=== PATIENT | female | born 1940 | race Caucasian/White ===

== ENCOUNTER 2022-09-08 21:56 | Inpatient (IN) | payer MEDICARE ==
[~2022-09-08] VITALS: Ht 160 cm; Wt 46.3 kg
[2022-09-08] MEDS ORDERED: ASPIRIN 325 MG TABLET PO ONE (22:30)
[2022-09-08] MEDS ORDERED: ASPIRIN 325 MG TABLET ONE (22:41)
[2022-09-08] MEDS ORDERED: ASPIRIN 300 MG/SUPP.RECT RC ONE ×2 (22:45→23:00)
--- NOTE | 2022-09-08 22:45 | NUR ---
PT IN ROOM 7, A/O X3, BREATHING IS EVEN AND UNLABORED. C/O CHEST PAIN AND BILATERALL LOWER LEG PAIN 10/10 SLIGHT SWELLING NOTED. PT IS GREATLY FATUGED HAVING TOUBLE SWALLOWING. PT CONNECTED TO BEDISDE MONITOR. BED LOCKED IN LOWEST POSTION SIDE RAILS UP IN FOLWERS POSITION.
[2022-09-08 22:59] LABS: BASOPHILS # (AUTO) 0.1 K/uL (0.0-0.2); BASOPHILS % (AUTO) 1.1 % (0.0-2.0); EOSINOPHILS % (AUTO) 1.8 % (0.0-6.0); HEMATOCRIT 39 % (33-45); HEMOGLOBIN 12.8 g/dL (11.5-14.8); LYMPHOCYTES # (AUTO) 0.7 K/uL (0.8-4.8); LYMPHOCYTES % (AUTO) 14.5 % (20.0-44.0); MEAN CORPUSCULAR HGB CONC 33 g/dl (31.0-36.0); MEAN CORPUSCULAR VOLUME 94 fL (82-100); MONOCYTES # (AUTO) 0.8 K/uL (0.1-1.30); MONOCYTES % (AUTO) 15.5 % (2.0-12.0); NEUTROPHILS # (AUTO) 3.3 K/uL (1.8-8.9); NEUTROPHILS % (AUTO) 67.1 % (43.0-81.0); PLATELET COUNT (AUTO) 198 K/uL (150-450); RED BLOOD CELL COUNT(AUTO) 4.09 MIL/uL (4.0-5.2); WHITE BLOOD COUNT (AUTO) 4.9 K/uL (4.3-11.0)
--- NOTE | 2022-09-08 23:12 | NUR ---
APPLICATIONS ARCHITECT AT BEDSIDE FOR XRAY
[2022-09-08 23:23] LABS: ALANINE AMINOTRANSFERASE 24 U/L (12-78); ALBUMIN 3.2 g/dL (3.4-5.0); ALKALINE PHOSPHATASE 48 U/L (46-116); ASPARTATE AMINOTRANSFERASE 17 U/L (15-37); BILIRUBIN,DIRECT 0.2 mg/dL (0.0-0.2); BILIRUBIN,TOTAL 0.6 mg/dL (0.2-1.0); CARBON DIOXIDE 27 mmol/L (21-32); CHLORIDE 99 mmol/L (98-107); CREATININE 0.8 mg/dL (0.6-1.3); GLUCOSE 113 mg/dL (74-106); POTASSIUM 4.2 mmol/L (3.5-5.1); SODIUM SERUM 131 mmol/L (136-145); UREA NITROGEN, BLOOD 19 mg/dL (7-18)
--- NOTE | 2022-09-08 23:40 | NUR ---
Pebbles finney in [facility] - 09/09/22 at 0010 by WILLIEBBDARIAN pt transported to room 114on cardiac per acls in stable condition
--- NOTE | 2022-09-09 00:55 | NUR ---
[facility] PAGED
[2022-09-09 01:08] LABS: BASOPHILS % (MANUAL) 0 % (0.0-2.0); EOSINOPHILS % (MANUAL) 3 % (0-4); LYMPHOCYTES % (MANUAL) 13 % (16-48); MONOCYTES % (MANUAL) 14 % (0-11.0); NEUTROPHILS % (MANUAL) 70 (42-76)
[2022-09-09] MEDS ORDERED: ACETAMINOPHEN 325 MG TABLET PO PRN (02:00)
[2022-09-09] MEDS ORDERED: HYDROCODONE/APAP 5/325MG TABLET PO PRN (02:00)
[2022-09-09] MEDS ORDERED: Z GUARD REMEDY 4 OZ OINT TP PRN (02:00)
[2022-09-09] MEDS ORDERED: MAG HYDROX/AL HYDROX/SIMETH 30 ML UDC PO PRN (02:00)
[2022-09-09] MEDS ORDERED: ONDANSETRON HCL/PF 4 MG/2 ML VIAL IVP PRN (02:00)
[2022-09-09] MEDS ORDERED: ZOLPIDEM TARTRATE 5 MG TABLET PO PRN (02:00)
[2022-09-09] MEDS ORDERED: MAGNESIUM HYDROXIDE 30 ML UDC PO PRN (02:00)
--- NOTE | 2022-09-09 02:40 | NUR ---
COVID SWAB AND MRSA COLLECTED, SENT TO LAB
[2022-09-09] MEDS ORDERED: ACET325C7 PO (03:31)
[2022-09-09] MEDS ORDERED: DOXA8TAB2 PO (03:31)
[2022-09-09] MEDS ORDERED: CARV12.52 PO (03:31)
[2022-09-09] MEDS ORDERED: CALC500T13 PO (03:31)
[2022-09-09] MEDS ORDERED: HYDR-4075 PO (03:31)
[2022-09-09] MEDS ORDERED: CRAN250C PO (03:31)
[2022-09-09] MEDS ORDERED: MAGN400O21 PO (03:31)
[2022-09-09] MEDS ORDERED: MULT-754 PO (03:31)
[2022-09-09] MEDS ORDERED: DOCU100C36 PO (03:31)
[2022-09-09] MEDS ORDERED: SODI1TAB66 PO (03:31)
[2022-09-09] MEDS ORDERED: ACET-2605 PO ×2 (03:31→09:52)
[2022-09-09] MEDS ORDERED: HYDR-4076 PO (03:31)
[2022-09-09] MEDS ORDERED: ONDA4TAB5 PO (03:31)
[2022-09-09] MEDS ORDERED: VALS160T29 PO (03:31)
[2022-09-09] MEDS ORDERED: APIX5TAB PO (03:31)
--- NOTE | 2022-09-09 04:40 | NUR ---
REPORT GIVEN TO RITA BLOOM FOR SHANIQUE
[2022-09-09] MEDS ORDERED: ENOXAPARIN SODIUM 40 MG/0.4 ML DISP.SYRIN SQ SCH (05:00)
--- NOTE | 2022-09-09 05:08 | NUR ---
TRANSFERRED TO BED 325 IN STABLE CONDITION
--- NOTE | 2022-09-09 06:00 | NUR ---
FISH PITCHER ADMITTING NOTE PATIENT WAS TRANSFERRED FROM ER TO 325 2 AT 0505H; PATIENT IS A/O X 4, ABLE TO MAKE NEEDS KNOWN; STABLE ON 2LPM OXYGEN VIA NASAL CANNULA, BREATHING EVENLY AND NO S/S OF DISTRESS NOTED; WITH IV ACCESS AT RFA G#20 SALINE LOCK; ORIENTED TO STAFF AND ROOM; SKIN ASSESSMENT ADN VITAL SIGNS WERE DONE; PATIENT'S BELONGINGS ACCOUNTED FOR; HOOKED ON TELE MONITORING CURRENTLY READING SINUS RHYTHMS 70 BPMS; SAFETY MEASURES IMPLEMENTED, BED LOCKED IN LOWEST POSITION, SIDE RAILS UP X 3, CALL LIGHT AND TABLE WITHIN REACH; WILL CONTINUE TO MONITOR THROUGHOUT SHIFT
[2022-09-09 06:33] VITALS: BP 155/76
--- NOTE | 2022-09-09 06:56 | NUR ---
MOTORIZED SQUAD CAPTAIN CLOSING NOTE PATIENT RESTING IN BED, A/O X 4, ABLE TO MAKE NEEDS KNOWN; STABLE ON 2LPM OXYGEN VIA NASAL CANNULA, BREATHING EVENLY AND NO S/S OF DISTRESS NOTED; WITH IV ACCESS AT RFA G#20 SALINE LOCK, INTACT AND PATENT; HOOKED ON TELE MONITORING CURRENTLY READING SINUS RHYTHMS 70 BPMS; DUE MEDICATIONS ADMINISTERED; PATIENT'S NEEDS ATTENDED; SAFETY MEASURES IMPLEMENTED, BED LOCKED IN LOWEST POSITION, SIDE RAILS UP X 3, CALL LIGHT AND TABLE WITHIN REACH; WILL ENDORSE TO AM NURSE FOR SHANIQUE.
[2022-09-09 07:00] VITALS: BP 169/66
--- NOTE | 2022-09-09 07:30 | NUR ---
RN OPENING NOTE RECEIVED PATIENT IN BED, AWAKE, A/O X2. VERBALLY RESPONSIVE. PT IS CONFUSED. REALITY AWARENESS PROVIDED. ON O2 INHALATION @2LPM VIA N/C, NO SOB NOTED, BREATHING EVEN AND UNLABORED. DENIES ANY PAIN AT THIS TIME. ON TELE MONITORING SHOWING SINUS RHYTHM, HR @68. NOTED WITH IV ACCESS ON RIGHT FOREARM #20G, INTACT AND PATENT, SALINE LOCKED. SAFETY MEASURE IN PLACE. BED IN LOW AND LOCKED POSITION. SIDE RAILS UP X2, CALL LIGHT PLACED WITHIN EASY REACH. WILL CONTINUE TO MONITOR PATIENT.
[2022-09-09] MEDS ORDERED: hydrALAZINE HCL 25 MG TABLET PO SCH (08:00)
[2022-09-09] MEDS: CARVEDILOL 12.5 MG TABLET PO SCH ×2 (08:37→16:41)
[2022-09-09] MEDS: ASPIRIN 81 MG TAB.CHEW PO SCH (08:37)
[2022-09-09] MEDS: PANTOPRAZOLE 40 MG TABLET.DR PO SCH (08:37)
[2022-09-09] MEDS: VALSARTAN 80 MG TABLET PO SCH ×2 (08:38→16:41)
[2022-09-09] MEDS: hydrALAZINE HCL 25 MG TABLET PO SCH ×3 (08:38→16:41)
[2022-09-09 08:39] LABS: THYROID STIMULATING HORMONE 1.963 uIU/mL (0.358-3.74)
[2022-09-09] MEDS ORDERED: MULT-447 PO (09:52)
[2022-09-09] MEDS ORDERED: MAGN400O6 PO (09:52)
[2022-09-09] MEDS ORDERED: AMIN30LI2 PO (09:52)
[2022-09-09 12:00] VITALS: BP 135/60
[2022-09-09] MEDS: APIXABAN 5 MG TABLET PO SCH (16:41)
[2022-09-09 17:29] VITALS: BP 107/47
--- NOTE | 2022-09-09 18:54 | NUR ---
RN CLOSING NOTE PATIENT IN BED, AWAKE, A/O X2-3. VERBALLY RESPONSIVE. CURRENTLY STABLE ON ROOM AIR. NO SOB NOTED, BREATHING EVEN AND UNLABORED. DENIES ANY PAIN AT THIS TIME. CONTINUE ON TELE MONITORING SHOWING SINUS RHYTHM, HR @90. WITH IV ACCESS ON RIGHT FOREARM #20G, INTACT AND PATENT, SALINE LOCKED. DUE MEDS GIVEN, TAKEN WELL. SAFETY MEASURE MAINTAINED. BED IN LOW AND LOCKED POSITION. SIDE RAILS UP X2, CALL LIGHT PLACED WITHIN EASY REACH. WILL ENDORSE TO NEXT SHIFT FOR CONTINUITY OF CARE.
--- NOTE | 2022-09-09 19:36 | NUR ---
rn opening note Received patient in bed talking with son at bedside. a/ox4. no s/s of apparent distress on room air. denies chest pain. reading st with 108 bmp at this time. no fluids running. safety in place-- bed in lowest, locked position, call light within reach, encouraged with the use of call light. will continue with patient's plan of care.
[2022-09-09 20:00] VITALS: BP 112/58
--- NOTE | 2022-09-09 21:41 | NUR ---
UA COLLECTED AT THIS TIME.
[2022-09-09] MEDS ORDERED: DOXAZOSIN MESYLATE (1 MG) 1 MG TABLET PO SCH (22:00)
[2022-09-10] VITALS: BP 148/48
[2022-09-10 05:54] LABS: BILIRUBIN,URINE NEGATIVE (NEGATIVE); COLOR,URINE DARK YELLOW (YELLOW); LEUKOCYTE ESTERASE ,URINE 1+ (NEGATIVE); NITRITE, URINE NEGATIVE (NEGATIVE); PH,URINE 5.5 (5.0-8.0); PROTEIN,URINE NEGATIVE (NEGATIVE); UGLUCOSE NEGATIVE (NEGATIVE); UROBILINOGEN,URINE 0.2 EU/dL (0.2)
[2022-09-10 06:00] LABS: BACTERIA,URINE Few /HPF (None Seen); SQUAMOUS EPITHELIAL CELL,UR Rare /HPF (None Seen)
[2022-09-10 06:25] LABS: BASOPHILS # (AUTO) 0.1 K/uL (0.0-0.2); BASOPHILS % (AUTO) 1.3 % (0.0-2.0); EOSINOPHILS % (AUTO) 1.9 % (0.0-6.0); HEMATOCRIT 36 % (33-45); HEMOGLOBIN 11.9 g/dL (11.5-14.8); LYMPHOCYTES # (AUTO) 0.8 K/uL (0.8-4.8); LYMPHOCYTES % (AUTO) 17.3 % (20.0-44.0); MEAN CORPUSCULAR HGB CONC 33 g/dl (31.0-36.0); MEAN CORPUSCULAR VOLUME 96 fL (82-100); MONOCYTES # (AUTO) 0.8 K/uL (0.1-1.30); MONOCYTES % (AUTO) 17.2 % (2.0-12.0); NEUTROPHILS # (AUTO) 2.8 K/uL (1.8-8.9); NEUTROPHILS % (AUTO) 62.3 % (43.0-81.0); PLATELET COUNT (AUTO) 168 K/uL (150-450); RED BLOOD CELL COUNT(AUTO) 3.73 MIL/uL (4.0-5.2); WHITE BLOOD COUNT (AUTO) 4.6 K/uL (4.3-11.0)
[2022-09-10 06:41] LABS: CALCIUM, SERUM 9.6 mg/dL (8.5-10.1); CREATININE 0.9 mg/dL (0.6-1.3); MAGNESIUM 1.8 mg/dL (1.8-2.4); PHOSPHORUS 3.1 mg/dL (2.5-4.9)
--- NOTE | 2022-09-10 07:04 | NUR ---
noc rn closing note Patient in bed, with eyes closed easy to arouse. no s/s of apparent distress in room air. denies pain. no chest pain throughout shift. reading sr this am 84 bpm. all needs attended all scheduled meds administered. will endorse to morning shift rn for continuity of care.
--- NOTE | 2022-09-10 07:38 | NUR ---
rn opening note Patient in bed, a/ox4. no s/s of apparent distress on room air. denies chest pain. reading sr with 74 bpm at this time. Safety in place-- bed in lowest, locked position, call light within reach, encouraged with the use of call light. will continue with patient's plan of care.
[2022-09-10] MEDS: PANTOPRAZOLE 40 MG TABLET.DR PO SCH (08:17)
[2022-09-10 08:31] VITALS: BP 158/75
[2022-09-10] MEDS: VALSARTAN 80 MG TABLET PO SCH (08:46)
[2022-09-10] MEDS: ASPIRIN 81 MG TAB.CHEW PO SCH (08:46)
[2022-09-10] MEDS: hydrALAZINE HCL 25 MG TABLET PO SCH (08:46)
[2022-09-10] MEDS: CARVEDILOL 12.5 MG TABLET PO SCH (08:47)
[2022-09-10] MEDS: APIXABAN 5 MG TABLET PO SCH (08:48)
[2022-09-10] MEDS ORDERED: NITROGLYCERIN 30 GM TUBE TP SCH (09:30)
[2022-09-10 11:26] VITALS: BP 99/71
[2022-09-10] MEDS: hydrALAZINE HCL 50 MG TABLET PO SCH ×2 (13:00→13:11)
[2022-09-10 13:11] VITALS: BP 142/70
--- NOTE | 2022-09-10 15:46 | NUR ---
DISCHARGED NOTE [facility]. PATIENT IS A/O X3, ABLE TO MAKE NEEDS KNOWN. ON RA, TOLERATING WELL. NO EPISODE OF CARDIAC OR RESPIRATORY DISTRESS. VITAL SIGNS TAKEN, STABLE AND RECORDED. ALL BELONGINGS ACCOUNTED TO THE PATIENT. REPORT GIVEN TO [facility], ALL DUE MEDS GIVEN, PATIENT SKIN IS INTACT, AMBULATORY WITH ASSIST. IV ACCESS REMOVED, NO BLEEDING OR SWELLING NOTED. PATIENT LEFT THE UNIT VIA GURNEY ACCOMPANIED BY AMBULANCE STAFF. DISCHARGED.
[2022-09-10] MEDS ORDERED: CARVEDILOL 12.5 MG TABLET PO SCH (17:00)
== END 2022-09-10 16:07 | DRG 311 ==
LOC: ER 21:58 → TELE 09-09 04:36
PROVIDERS: ADMIT Student in an Organized Health Care Education/Training Program; ATTEND Internal Medicine
DX: I20.0 Unstable angina (principal); E87.1 Hypo-osmolality and hyponatremia; I08.0 Rheumatic disorders of both mitral and aortic valves; J84.10 Pulmonary fibrosis, unspecified; I11.9 Hypertensive heart disease without heart failure; K21.9 Gastro-esophageal reflux disease without esophagitis; I44.7 Left bundle-branch block, unspecified; M79.651 Pain in right thigh; Z86.711 Personal history of pulmonary embolism; Z79.01 Long term (current) use of anticoagulants; Z79.899 Other long term (current) drug therapy; E88.09 Other disorders of plasma-protein metabolism, not elsewhere classified; Z91.81 History of falling; Z20.822 Contact with and (suspected) exposure to COVID-19
CPT/HCPCS: 36415; 71045-TC; 73552; 80048-TC; 80061-TC; 80076-TC; 81001; 83690-TC; 83735-TC; 83880; 84100-TC; 84439-TC; 84443-TC; 84484-TC; 85025-TC; 85730-TC; 87081-TC; 87086-TC; 93307-TC; 97116-TC; 97530-TC; G0378; J1650